=== PATIENT | male | born 1955 | race Hispanic/Latino ===

== ENCOUNTER 2018-01-15 14:05 | Emergency (ER) | payer MEDICAID ==
[2018-01-15 14:39] VITALS: BMI 33.9
[2018-01-15 17:06] LABS: BASO # 0.1 K/uL (0.0-0.2); BASO % 0.5 % (0.0-2.0); EOS # 0.1 K/uL (0.0-0.7); EOS % 0.8 % (0.0-4.0); LYMPH # 0.8 K/uL (1.0-4.3); LYMPH % 6.9 % (20.0-40.0); MEAN CELL VOLUME 86.6 fL (80.0-94.0); MEAN CORPUSCULAR HEMOGLOBIN 29.3 pg (27.0-31.0); MEAN CORPUSCULAR HGB CONC 33.8 g/dL (33.0-37.0); MEAN PLATELET VOLUME 7.1 fL (7.2-11.7); MONO # 1.1 K/uL (0.0-0.8); MONO % 10.1 % (0.0-10.0); NEUT # 9.1 K/uL (1.8-7.0); NEUT % 81.7 % (50.0-75.0); NRBC % 0.1 % (0.0-2.0); PLATELET COUNT 198 K/uL (130-400); RBC 5.11 Mil/uL (4.40-5.90); RED CELL DISTRIBUTION WIDTH 13.5 % (11.5-14.5); WHITE BLOOD COUNT 11.1 K/uL (4.8-10.8)
--- NOTE | 2018-01-15 17:14 | C.PDOC ---
History Of Present Illness 62-year-old male, presents to the emergency department, sent in by PMD with complaints of swelling to the left inguinal area. Patient states his thighs are rubbing together when he walks causing discomfort. Patient denies any urinary symptoms or abdominal pain. He has no fever or chills. Time Seen by Provider: 01/15/18 16:24 Chief Complaint (Nursing): Abnormal Skin Integrity History Per: Patient History/Exam Limitations: no limitations Past Medical History Reviewed: Historical Data, Nursing Documentation, Vital Signs Vital Signs: Last Vital Signs Temp 98 F 01/15/18 21:20 Pulse 85 01/15/18 21:20 Resp 18 01/15/18 21:20 BP 154/75 H 01/15/18 21:20 Pulse Ox 98 01/15/18 21:20 Family History: States: No Known Family Hx - Social History Hx Alcohol Use: Yes Hx Substance Use: No - Immunization History Hx Tetanus Toxoid Vaccination: No Hx Influenza Vaccination: No Hx Pneumococcal Vaccination: No Review Of Systems Constitutional: Negative for: Fever, Chills Cardiovascular: Negative for: Chest Pain Respiratory: Negative for: Shortness of Breath Gastrointestinal: Negative for: Vomiting Genitourinary: Positive for: Rash. Negative for: Dysuria, Frequency, Incontinence, Hematuria, Penile Discharge, Scrotal Pain, Penile Pain Neurological: Negative for: Weakness, Numbness, Headache, Dizziness Physical Exam - Physical Exam Appears: Non-toxic, No Acute Distress Skin: Normal Color, Warm, Dry, No Rash Head: Normacephalic Neck: Normal ROM Cardiovascular: Rhythm Regular, No Murmur Respiratory: Normal Breath Sounds, No Accessory Muscle Use Male Genital: Testicular Tenderness, Inguinal Swelling, Other (significant swelling with erythema of the entire inguinal canal and mons pubis. no redness or swelling to penis.) Extremity: Normal ROM, No Deformity, No Swelling ED Course And Treatment - Laboratory Results Result Diagrams: 01/15/18 17:02 01/15/18 17:02 Lab Interpretation: Abnormal (Slightly elevated WBC 11.1 with left shift) O2 Sat by Pulse Oximetry: 94 (RA) Pulse Ox Interpretation: Normal - CT Scan/US Testicular ultrasound Other Rad Studies (CT/US): Read By Radiologist, Radiology Report Reviewed CT/US Interpretation: Accession No. : [id number]. Patient Name / ID : ALISTAIR FREEMAN / [id number]. Exam Date : 01/15/2018 17:02:00 ( Approved ). Study Comment : Sex / Age : M / 62Y. Creator : PEGGY MARQUEZ. Dictator : Ecd : Aircrewman : PEGGY MARQUEZ. Approver2 : Report Date : 01/15/2018 18:09:00. My Comment : . [facility] Division of Radiology. [address] [place] [address]. Tel. no. . . . Patient Name: PETE SAINZ . Pt. Address: [address] [place] [address]. Rec #: [id number]. [place] [address]: Stalin SANTO, Rosalinda Acharya. Pt Order Location: [facility] : 1955 Male Age: 62 Order #: [id number]. Reason for exam: left inguinal pain and swelling. . . . . . Ultrasound. . . TESTES DUPLEX COMPLETE Exam Date: 01/15/18. . This imaging exam was performed at [facility]. EXAM: US Scrotum. . EXAM DATE/TIME: 01/15/2018 4:33 PM. . CLINICAL HISTORY: 62 years old, male; Pain; Groin pain; Additional info: Left inguinal pain and. swelling. . TECHNIQUE: Real-time ultrasound of the scrotum with color Doppler and image. documentation. . COMPARISON: There are no prior studies for comparison. . FINDINGS: . Right: Right testicle measures approximately 4.1 x 2 x 2.6 cm. Echotexture. is uniform. There are no testicular masses. There is expected intratesticular. blood flow. Right epididymal head measures 8 x 7 mm. There is a small. epididymal head cyst.. There is a very small hydrocele. . Left: Left testicle measures approximately 4 x 1.8 by 2.8 cm. Echotexture is. uniform. There are no testicular masses. There is expected intratesticular. blood flow. Left epididymal head measures approximately 9 x 9 mm. There are. small left epididymal head cysts. There is a very small hydrocele. . There is an ill-defined area of edema in the left groin. . IMPRESSION: Normal testes, no torsion; ill-defined area of decreased. attenuation in the left groin suggesting edema and possible cellulitis. . Dictated By: Peggy Marquez MD., MD. Dictated Date/Time : 01/15/181808. Signed By: Peggy Marquez MD. Date Signed: 01/15/181808. Transcribed By: [employer]. Transcribe Date/Time: 01/15/181808. DEMETRICE/BALA pelvic CT Other Rad Studies (CT/US): Read By Radiologist, Radiology Report Reviewed CT/US Interpretation: Accession No. : [id number]. Patient Name / ID : ALISTAIR FREEMAN / [id number]. Exam Date : 01/15/2018 20:14:49 ( Approved ). Study Comment : Sex / Age : M / 62Y. Creator : PEGGY MARQUEZ. Dictator : Ecd : Aircrewman : PEGGY MARQUEZ. Approver2 : Report Date : 01/15/2018 20:40:00. My Comment : . [facility] Division of Radiology. [address] [place] [address]. Tel. no. . . . Patient Name: PETE SAINZ . Pt. Address: [address] [place] [address]. Rec #: [id number]. [place] [address]: Stalin SANTO, Rosalinda Acharya. Pt Order Location: [facility] : 1955 Male Age: 62 Order #: [id number]. Reason for exam: Left nguinal swelling r/o abscess. . . . . . CT Scan. . . PELVIS W/ORAL IV CONTRAST Exam Date: 01/15/18. . This imaging exam was performed at [facility]. EXAM: CT Pelvis With Intravenous Contrast. . EXAM DATE/TIME : 01/15/2018 6:46 PM. . CLINICAL HISTORY: 62 years old, male; Signs and symptoms; Mass, lump, or swelling; Lower. quadrant, left; Additional info: Left nguinal swelling R/O abscess. . TECHNIQUE: Axial computed tomography images of the pelvis with intravenous contrast. All CT scans at this facility use one or more dose reduction techniques, viz.: automated exposure control; ma /kV adjustment per patient size (including. targeted exams where dose is matched to indication; i.e. head); or iterative. reconstruction technique. Coronal and sagittal reformatted images were created and reviewed. . CONTRAST : 100 mL of omnipaque 300 administered intravenously. . COMPARISON: No relevant prior studies available. . FINDINGS: Kidneys and ureters: Kidneys are incompletely imaged. There is a right renal. cyst. Ureters are unremarkable. Bowel: There is a nonobstructed gas pattern in the pelvis. Small bowel. extends into a nonobstructing right inguinal hernia. Ileocecal region is. unremarkable. Terminal ileum is unremarkable. Visualized portions the appendix. is unremarkable. There is scattered diverticulosis. Appendix: See stomach and bowel. Intraperitoneal space: There is no free air. There is no free fluid in the. pelvis. Bladder: Urinary bladder is unremarkable. Reproductive: Prostate is mildly enlarged. Seminal vesicles are unremarkable. Bones/joints: There are degenerative changes in the osseus structures. Soft tissues: There is a nonobstructing right inguinal hernia containing fat. and small bowel. There is a fat containing left inguinal hernia. . There is edema and inflammation in the skin of the left inguinal region and. scrotum. There are small subcutaneous nodules possibly lymph nodes. There is no. air in the soft tissues. Vasculature: There are vascular calcifications. . Lymph nodes : See above. . IMPRESSION: Left groin cellulitis with probable enlarged nodes, no soft tissue. air; nonobstructing right inguinal hernia containing small bowel and fat; fat. containing left inguinal hernia. Additional nonemergent findings as described above. Progress Note: US Testes, UA and Bloodwork ordered and reviewed. Disposition Counseled Patient/Family Regarding: Studies Performed, Diagnosis, Need For Followup, Rx Given - Disposition Referrals: Oswaldo Junior MD [Medical Doctor] - Disposition: HOME/ ROUTINE Disposition Time: 21:32 Condition: STABLE Prescriptions: Cephalexin [cephalexin] 500 mg PO TID #30 cap Sulfamethoxazole/Trimethoprim [Bactrim DS 800 mg-160 mg] 1 tab PO BID #20 tab Instructions: Cellulitis (Skin Infection), Adult (DC) Forms: [employer] (Vietnamese) - Clinical Impression Clinical Impression: Cellulitis - Scribe Statement The provider has reviewed the documentation as recorded by the Scribe (Chandrika Box) All medical record entries made by the Scribe were at my direction and personally dictated by me. I have reviewed the chart and agree that the record accurately reflects my personal performance of the history, physical exam, medical decision making, and the department course for this patient. I have also personally directed, reviewed, and agree with the discharge instructions and disposition.
[2018-01-15 17:19] LABS: ALB/GLOB RATIO 1.2 (1.0-2.1); ALT/SGPT 26 U/L (21-72); AST/SGOT 17 U/L (17-59); BLOOD UREA NITROGEN 14 mg/dL (9-20); CALCIUM 9.3 mg/dl (8.6-10.4); GFR AFRICAN-AMERICAN > 60; GFR NON-AFRICAN AMERICAN > 60
[2018-01-15 17:45] LABS: URINE BACTERIA RARE (<OCC); URINE BILIRUBIN NEGATIVE (NEGATIVE); URINE BLOOD NEGATIVE (NEGATIVE); URINE CLARITY Hazy (Clear); URINE COLOR Yellow (YELLOW); URINE GLUCOSE (UA) NORMAL (Normal); URINE LEUKOCYTE ESTERASE TRACE Leu/uL (Negative); URINE NITRATE NEGATIVE (NEGATIVE); URINE PROTEIN NEGATIVE (NEGATIVE); URINE UROBILINOGEN NORMAL mg/dL (0.2-1.0)
[2018-01-15 17:57] LABS: ANISOCYTOSIS SLIGHT; BANDS 4 % (0-2); EOSINOPHIL 2 % (0-4); LYMPHOCYTE 5 % (20-40); MONOCYTE 10 % (0-10); NEUTROPHIL 79 % (50-75); PLATELET ESTIMATE NORMAL (NORMAL); TOTAL CELLS COUNTED 100
[2018-01-15 17:58] LABS: HYPOCHROMIC SLIGHT; MICROCYTOSIS SLIGHT; SCHISTOCYTES SLIGHT
--- NOTE | 2018-01-15 18:09 | US ---
EXAM: US Scrotum EXAM DATE/TIME: 01/15/2018 4:33 PM CLINICAL HISTORY: 62 years old, male; Pain; Groin pain; Additional info: Left inguinal pain and swelling TECHNIQUE: Real-time ultrasound of the scrotum with color Doppler and image documentation. COMPARISON: There are no prior studies for comparison. FINDINGS: Right: Right testicle measures approximately 4.1 x 2 x 2.6 cm. Echotexture is uniform. There are no testicular masses. There is expected intratesticular blood flow. Right epididymal head measures 8 x 7 mm. There is a small epididymal head cyst.. There is a very small hydrocele. Left: Left testicle measures approximately 4 x 1.8 by 2.8 cm. Echotexture is uniform. There are no testicular masses. There is expected intratesticular blood flow. Left epididymal head measures approximately 9 x 9 mm. There are small left epididymal head cysts. There is a very small hydrocele. There is an ill-defined area of edema in the left groin. IMPRESSION: Normal testes, no torsion; ill-defined area of decreased attenuation in the left groin suggesting edema and possible cellulitis
[2018-01-15] MEDS ORDERED: Iohexol 240 (50 ml) PO STA (19:38)
[2018-01-15] MEDS ORDERED: Iohexol 240 (50 ml) ONE (19:46)
[2018-01-15] MEDS ORDERED: Iohexol 300 100 ML IJ ONE (19:53)
--- NOTE | 2018-01-15 20:40 | CT ---
EXAM: CT Pelvis With Intravenous Contrast EXAM DATE/TIME: 01/15/2018 6:46 PM CLINICAL HISTORY: 62 years old, male; Signs and symptoms; Mass, lump, or swelling; Lower quadrant, left; Additional info: Left nguinal swelling R/O abscess TECHNIQUE: Axial computed tomography images of the pelvis with intravenous contrast. All CT scans at this facility use one or more dose reduction techniques, viz.: automated exposure control; ma/kV adjustment per patient size (including targeted exams where dose is matched to indication; i.e. head); or iterative reconstruction technique. Coronal and sagittal reformatted images were created and reviewed. CONTRAST: 100 mL of omnipaque 300 administered intravenously. COMPARISON: No relevant prior studies available. FINDINGS: Kidneys and ureters: Kidneys are incompletely imaged. There is a right renal cyst. Ureters are unremarkable. Bowel: There is a nonobstructed gas pattern in the pelvis. Small bowel extends into a nonobstructing right inguinal hernia. Ileocecal region is unremarkable. Terminal ileum is unremarkable. Visualized portions the appendix is unremarkable. There is scattered diverticulosis. Appendix: See stomach and bowel Intraperitoneal space: There is no free air. There is no free fluid in the pelvis. Bladder: Urinary bladder is unremarkable. Reproductive: Prostate is mildly enlarged. Seminal vesicles are unremarkable. Bones/joints: There are degenerative changes in the osseus structures. Soft tissues: There is a nonobstructing right inguinal hernia containing fat and small bowel. There is a fat containing left inguinal hernia. There is edema and inflammation in the skin of the left inguinal region and scrotum. There are small subcutaneous nodules possibly lymph nodes. There is no air in the soft tissues. Vasculature: There are vascular calcifications. Lymph nodes: See above. IMPRESSION: Left groin cellulitis with probable enlarged nodes, no soft tissue air; nonobstructing right inguinal hernia containing small bowel and fat; fat containing left inguinal hernia Additional nonemergent findings as described above.
[2018-01-15 21:21] VITALS: BP 154/75; PULSE 85; RESP 18; TEMP 98
[2018-01-15 21:34] VITALS: O2SAT 94
== END 2018-01-15 21:46 | disposition home or self-care (01) ==
LOC: C.ER 14:05
DX: L03.314 Cellulitis of groin (principal)
CPT/HCPCS: 72193; 80053; 81001; 85025; 93975; 99284; Q9966; Q9967